=== PATIENT | female | born 1980 | race American Indian/Alaskan Native ===

== ENCOUNTER 2021-09-13 16:41 | Inpatient (IN) | payer SELFPAY ==
[2021-09-13] MEDS ORDERED: HYDROmorphone 0.5 MG/0.5 ML Syringe IVPUSH ONE (16:59)
[2021-09-13] MEDS ORDERED: Ketorolac 30 MG/ML SDV IVPUSH ONE (16:59)
[2021-09-13] MEDS ORDERED: Magnesium Hydroxide 400 MG/5 ML Susp 30 ML Cup PO PRN (17:01)
[2021-09-13] MEDS ORDERED: LORazepam 2 MG/ML SDV IVPUSH PRN (17:01)
[2021-09-13] MEDS ORDERED: Ondansetron 4 MG/2 ML SDV IV PRN (17:01)
[2021-09-13] MEDS ORDERED: Ondansetron 4 MG Tab.DIS PO PRN (17:01)
[2021-09-13] MEDS: Sodium Chloride 0.9% 1,000 ML IV SCH (17:39)
[2021-09-13] MEDS ORDERED: Sodium Chloride 0.9% 50 ML ONE (17:54)
[2021-09-13] MEDS ORDERED: Sodium Chloride 0.9% 1,000 ML IV SCH (18:00)
[2021-09-13] MEDS ORDERED: Vancomycin 2 GM in Sodium Chloride 0.9% 500 ML IV ONE (18:30)
[2021-09-13] MEDS ORDERED: Insulin Lispro 100 Unit/ML 3 ML KwikPen SUBCUT ONE (21:10)
[2021-09-13] MEDS: Insulin Lispro 100 Unit/ML 3 ML KwikPen SUBCUT SCH (21:14)
[2021-09-13] MEDS: Enoxaparin 40 MG/0.4 ML Syringe SUBCUT SCH (21:20)
[2021-09-13] MEDS: Lactobacillus Rhamnosus GG (Probiotic) Cap PO SCH (21:20)
[2021-09-14] MEDS: Acetaminophen 325 MG Tab PO PRN ×4 (01:58→20:13)
[2021-09-14] MEDS: HYDROmorphone 1 MG/ML Syringe IVPUSH PRN ×4 (01:59→20:13)
[2021-09-14] MEDS: Sodium Chloride 0.9% 1,000 ML IV SCH (05:18)
[2021-09-14] MEDS: Insulin Lispro 100 Unit/ML 3 ML KwikPen SUBCUT SCH ×4 (07:45→21:32)
[2021-09-14] MEDS: Pantoprazole 40 MG Tab.CR PO SCH (09:06)
[2021-09-14] MEDS: metFORMIN 500 MG Tab PO SCH ×2 (09:10→18:33)
[2021-09-14] MEDS: Lactobacillus Rhamnosus GG (Probiotic) Cap PO SCH ×2 (09:21→21:32)
[2021-09-14] MEDS: Enoxaparin 40 MG/0.4 ML Syringe SUBCUT SCH (21:32)
[2021-09-15] MEDS: Acetaminophen 325 MG Tab PO PRN ×4 (00:45→18:45)
[2021-09-15] MEDS: HYDROmorphone 0.5 MG/0.5 ML Syringe IVPUSH PRN ×5 (00:45→19:35)
[2021-09-15] MEDS: Pantoprazole 40 MG Tab.CR PO SCH (07:11)
[2021-09-15] MEDS: Insulin Lispro 100 Unit/ML 3 ML KwikPen SUBCUT SCH ×4 (07:46→21:20)
[2021-09-15] MEDS: Lactobacillus Rhamnosus GG (Probiotic) Cap PO SCH ×2 (08:05→21:21)
[2021-09-15] MEDS: metFORMIN 500 MG Tab PO SCH ×2 (08:05→16:55)
[2021-09-15] MEDS: Sodium Chloride 0.9% 1,000 ML IV SCH (10:50)
[2021-09-15] MEDS: Enoxaparin 40 MG/0.4 ML Syringe SUBCUT SCH (21:21)
[2021-09-16] MEDS: Acetaminophen 325 MG Tab PO PRN ×4 (00:31→20:59)
[2021-09-16] MEDS: HYDROmorphone 0.5 MG/0.5 ML Syringe IVPUSH PRN ×3 (00:34→08:04)
[2021-09-16] MEDS: metFORMIN 500 MG Tab PO SCH ×2 (08:01→17:12)
[2021-09-16] MEDS: Pantoprazole 40 MG Tab.CR PO SCH (08:02)
[2021-09-16] MEDS: Lactobacillus Rhamnosus GG (Probiotic) Cap PO SCH ×2 (08:03→20:29)
[2021-09-16] MEDS: Insulin Lispro 100 Unit/ML 3 ML KwikPen SUBCUT SCH ×4 (09:29→21:04)
[2021-09-16] MEDS: oxyCODONE 5 MG Tab PO PRN ×2 (17:56→22:00)
[2021-09-16] MEDS: Enoxaparin 40 MG/0.4 ML Syringe SUBCUT SCH (20:29)
[2021-09-17] MEDS: oxyCODONE 5 MG Tab PO PRN ×6 (02:13→23:53)
[2021-09-17] MEDS: Insulin Lispro 100 Unit/ML 3 ML KwikPen SUBCUT SCH ×4 (07:35→21:53)
[2021-09-17] MEDS: metFORMIN 500 MG Tab PO SCH ×2 (07:36→17:07)
[2021-09-17] MEDS: Pantoprazole 40 MG Tab.CR PO SCH (07:36)
[2021-09-17] MEDS: Acetaminophen 325 MG Tab PO PRN ×2 (07:43→15:11)
[2021-09-17] MEDS: Lactobacillus Rhamnosus GG (Probiotic) Cap PO SCH ×2 (09:06→20:49)
[2021-09-17] MEDS: Ciprofloxacin 500 MG Tab PO SCH ×2 (11:47→20:49)
[2021-09-17] MEDS: Enoxaparin 40 MG/0.4 ML Syringe SUBCUT SCH (20:49)
[2021-09-18] MEDS: oxyCODONE 5 MG Tab PO PRN ×3 (04:08→11:58)
[2021-09-18] MEDS: Insulin Lispro 100 Unit/ML 3 ML KwikPen SUBCUT SCH ×3 (07:51→16:38)
[2021-09-18] MEDS: metFORMIN 500 MG Tab PO SCH ×2 (07:52→16:38)
[2021-09-18] MEDS: Pantoprazole 40 MG Tab.CR PO SCH (07:52)
[2021-09-18] MEDS: Ciprofloxacin 500 MG Tab PO SCH (08:01)
[2021-09-18] MEDS: Lactobacillus Rhamnosus GG (Probiotic) Cap PO SCH (08:01)
== END 2021-09-18 17:11 | disposition home or self-care (01) | DRG 872 ==
LOC: JP.MS 16:41
PROVIDERS: ADMIT Internal Medicine; ATTEND Hospitalist
DX: A41.9 Sepsis, unspecified organism (principal); N39.0 Urinary tract infection, site not specified; L03.116 Cellulitis of left lower limb; E11.65 Type 2 diabetes mellitus with hyperglycemia; B96.20 Unspecified Escherichia coli [E. coli] as the cause of diseases classified elsewhere; E66.9 Obesity, unspecified; F17.210 Nicotine dependence, cigarettes, uncomplicated; R10.12 Left upper quadrant pain; Z68.34 Body mass index [BMI] 34.0-34.9, adult
CPT/HCPCS: 36415; 80048; 80053; 80202; 81001; 82947; 83605; 85025; 85027; 86140; 87040; 87077; 87086; 87186; A9270-GY; J0713; J1170; J1650; J1815; J1885; J2405; J3370; J7030; J7040; J7050